=== PATIENT | female | born 1950 | race Caucasian/White ===

== ENCOUNTER → 2017-01-23 | Outpatient (CLI) | payer OTHER ==
[~2017-01-23] MED LIST: PRLSR20 PO
[2017-01-23 14:44] LABS: BASO % 0.7 %; BASO ABS # 0.06 K/uL (0-0.2); COMPLETE YES; HEMATOCRIT 41.6 % (37-47); IG% 0.2 %; LYMPH % 26.7 %; LYMPH ABS # 2.27 K/uL (1.2-3.4); MEAN CORPUSCULAR HEMOGLOBIN 31.5 pg (25-34); MEAN CORPUSCULAR HGB CONC 33.2 g/dl (32-36); MEAN PLATELET VOLUME 9.9 fL (7.4-10.4); MONO % 7.6 %; NEUT % 62.8 %; PLATELET COUNT 339 K/uL (130-400); RED BLOOD COUNT 4.38 M/uL (4.2-5.4)
[2017-01-23 15:04] LABS: ALT/SGPT 34 U/L (12-78); BLOOD UREA NITROGEN 16 mg/dl (7-18); BUN/CREATININE RATIO 17.6 (10-20); CALCIUM 9.2 mg/dl (8.5-10.1); CARBON DIOXIDE 31 mmol/L (21-32); CHLORIDE 106 mmol/L (98-107); CREATININE 0.91 mg/dl (0.60-1.20); GLUCOSE 93 mg/dl (70-99); SODIUM 141 mmol/L (136-145)
[2017-01-23 15:07] LABS: ALB/GLOB RATIO 1.1 (0.9-2); ALKALINE PHOSPHATASE 75 U/L (45-117); AST/SGOT 17 U/L (15-37); CHOLESTEROL 200 mg/dl (0-200); CHOLESTEROL/HDL RATIO 2.9; HDL CHOLESTEROL 70 mg/dl; LDL CHOLESTEROL CALCULATED 113 mg/dl; TRIGLYCERIDES 83 mg/dl (0-150); VERY LOW DENSITY LIPOPROT CALC 17 mg/dl
== END | disposition home or self-care (01) ==
LOC: C.LABBC 12:15
PROVIDERS: ATTEND Family Medicine
DX: K21.9 Gastro-esophageal reflux disease without esophagitis (principal); E55.9 Vitamin D deficiency, unspecified; E78.5 Hyperlipidemia, unspecified; Z13.0 Encounter for screening for diseases of the blood and blood-forming organs and certain disorders involving the immune mechanism

== ENCOUNTER → 2017-03-04 | Outpatient (CLI) | payer OTHER ==
[2017-03-04 16:58] LABS: BASO % 0.6 %; BASO ABS # 0.05 K/uL (0-0.2); COMPLETE YES; EOS % 1.8 %; HEMATOCRIT 42.7 % (37-47); IG% 0.2 %; LYMPH % 30.5 %; LYMPH ABS # 2.65 K/uL (1.2-3.4); MEAN CELL VOLUME 93.4 fL (80-100); MEAN CORPUSCULAR HEMOGLOBIN 31.7 pg (25-34); MEAN PLATELET VOLUME 10.4 fL (7.4-10.4); MONO % 6.7 %; NEUT % 60.2 %; PLATELET COUNT 314 K/uL (130-400); RED BLOOD COUNT 4.57 M/uL (4.2-5.4); WHITE BLOOD COUNT 8.68 K/uL (4.8-10.8)
[2017-03-04 17:06] LABS: ALT/SGPT 33 U/L (12-78); AST/SGOT 17 U/L (15-37); BLOOD UREA NITROGEN 16 mg/dl (7-18); BUN/CREATININE RATIO 15.5 (10-20); CALCIUM 9.6 mg/dl (8.5-10.1); CARBON DIOXIDE 29 mmol/L (21-32); CHLORIDE 102 mmol/L (98-107); GLUCOSE 87 mg/dl (70-99); POTASSIUM 4.2 mmol/L (3.5-5.1); SODIUM 140 mmol/L (136-145)
[2017-03-04 17:17] LABS: ALB/GLOB RATIO 1.2 (0.9-2); ALKALINE PHOSPHATASE 73 U/L (45-117); THYROID STIMULATING HORMONE 0.475 uIu/ml (0.300-4.500)
[2017-03-04 18:32] LABS: LYME DISEASE AB IGM NEG (NEG)
[2017-03-04 18:35] LABS: LYME DISEASE AB IGG NEG (NEG)
== END | disposition home or self-care (01) ==
LOC: C.LABBC 15:02
PROVIDERS: ATTEND Physician Assistant
DX: R53.83 Other fatigue (principal)

== ENCOUNTER 2017-03-15 11:47 | Emergency (ER) | payer OTHER ==
[~2017-03-15] VITALS: Ht 157.5 cm; Wt 81.8 kg
[2017-03-15 11:51] VITALS: TEMP 36.8; Ht 157.5 cm; Wt 81.8 kg
[2017-03-15 12:40] LABS: BASO % 0.4 %; BASO ABS # 0.03 K/uL (0-0.2); COMPLETE YES; EOS % 1.4 %; HEMATOCRIT 42.4 % (37-47); IG% 0.3 %; LYMPH % 25.5 %; LYMPH ABS # 1.85 K/uL (1.2-3.4); MEAN CELL VOLUME 94.2 fL (80-100); MEAN CORPUSCULAR HEMOGLOBIN 31.6 pg (25-34); MEAN CORPUSCULAR HGB CONC 33.5 g/dl (32-36); MEAN PLATELET VOLUME 10.2 fL (7.4-10.4); MONO % 8.8 %; NEUT % 63.6 %; PLATELET COUNT 276 K/uL (130-400); WHITE BLOOD COUNT 7.26 K/uL (4.8-10.8)
[2017-03-15 12:56] LABS: CALCIUM 8.9 mg/dl (8.5-10.1); CREATININE 0.9 mg/dl (0.60-1.20); POTASSIUM 4.1 mmol/L (3.5-5.1)
--- NOTE | 2017-03-15 13:02 | DIAGNOSTIC IMAGING REPORT ---
CHEST 2 VIEWS ROUTINE CLINICAL HISTORY: fatigue LEG WEAKNESS COMPARISON STUDY: No previous studies for comparison. FINDINGS: The cardiac and mediastinal contours are normal. There is no evidence of focal pulmonary consolidation. There is no evidence of failure. No pleural effusions are visualized.[ Slightly prominent basilar markings are likely atelectatic IMPRESSION: No active disease in the chest. Electronically signed by: John Schultz M.D. 03/15/2017 1:01 PM Dictated Date/Time: 03/15/2017 1:00 PM
--- NOTE | 2017-03-15 13:12 | EMERGENCY ROOM VISIT NOTE ---
ED Visit Note First contact with patient: 11:58 I have seen and examined this patient with Kait Miranda and generally agree with the treatment plan as discussed. Current/Historical Medications Scheduled Omeprazole (Prilosec), 20 MG PO BID Allergies Coded Allergies: Adhesives (Verified Allergy, Unknown, SKIN IRRITATION, 03/15/17) Penicillins (Verified Allergy, Unknown, 03/15/17) Sulfa Drugs (Verified Allergy, Unknown, 03/15/17) Lavender Oil (Verified Adverse Reaction, Unknown, GI SYMPTOMS, 03/15/17) Vital Signs Date Time Temp Pulse Resp B/P (MAP) Pulse Ox O2 Delivery O2 Flow Rate FiO2 03/15/17 11:51 36.8 88 18 136/71 96 Room Air Laboratory Results 03/15/17 12:27 Red Blood Count 4.50, Mean Corpuscular Volume 94.2, Mean Corpuscular Hemoglobin 31.6, Mean Corpuscular Hemoglobin Concent 33.5, Mean Platelet Volume 10.2, Neutrophils (%) (Auto) 63.6, Lymphocytes (%) (Auto) 25.5, Monocytes (%) (Auto) 8.8, Eosinophils (%) (Auto) 1.4, Basophils (%) (Auto) 0.4, Neutrophils # (Auto) 4.62, Lymphocytes # (Auto) 1.85, Monocytes # (Auto) 0.64, Eosinophils # (Auto) 0.10, Basophils # (Auto) 0.03 03/15/17 12:27 Test 03/15/17 12:25 03/15/17 12:27 Influenza Type A Antigen Neg for Influ A (NEG) Influenza Type B Antigen Neg for Influ B (NEG) White Blood Count 7.26 K/uL (4.8-10.8) Red Blood Count 4.50 M/uL (4.2-5.4) Hemoglobin 14.2 g/dL (12.0-16.0) Hematocrit 42.4 % (37-47) Mean Corpuscular Volume 94.2 fL (80-100) Mean Corpuscular Hemoglobin 31.6 pg (25-34) Mean Corpuscular Hemoglobin Concent 33.5 g/dl (32-36) Platelet Count 276 K/uL (130-400) Mean Platelet Volume 10.2 fL (7.4-10.4) Neutrophils (%) (Auto) 63.6 % Lymphocytes (%) (Auto) 25.5 % Monocytes (%) (Auto) 8.8 % Eosinophils (%) (Auto) 1.4 % Basophils (%) (Auto) 0.4 % Neutrophils # (Auto) 4.62 K/uL (1.4-6.5) Lymphocytes # (Auto) 1.85 K/uL (1.2-3.4) Monocytes # (Auto) 0.64 K/uL (0.11-0.59) Eosinophils # (Auto) 0.10 K/uL (0-0.5) Basophils # (Auto) 0.03 K/uL (0-0.2) RDW Standard Deviation 46.0 fL (36.4-46.3) RDW Coefficient of Variation 13.4 % (11.5-14.5) Immature Granulocyte % (Auto) 0.3 % Immature Granulocyte # (Auto) 0.02 K/uL (0.00-0.02) Anion Gap 9.0 mmol/L (3-11) Est Creatinine Clear Calc Drug Dose 61.8 ml/min Estimated GFR () 77.8 Estimated GFR (Non- 67.1 BUN/Creatinine Ratio 11.0 (10-20) Calcium Level 8.9 mg/dl (8.5-10.1) Total Bilirubin 0.4 mg/dl (0.2-1) Direct Bilirubin 0.1 mg/dl (0-0.2) Aspartate Amino Transf (AST/SGOT) 17 U/L (15-37) Alanine Aminotransferase (ALT/SGPT) 28 U/L (12-78) Alkaline Phosphatase 60 U/L (45-117) Total Protein 7.4 gm/dl (6.4-8.2) Albumin 4.0 gm/dl (3.4-5.0) Lipase 124 U/L (73-393) Departure Information Referrals Mohan Bingham D.O.Int.Med. (PCP) Patient Instructions My [facility]
--- NOTE | 2017-03-15 13:26 | EMERGENCY ROOM VISIT NOTE ---
History First contact with patient: 11:58 Chief Complaint: ILLNESS Stated Complaint: WEAKNESS IN LEGS, FATIGUE, PRESSURE IN HEAD History of Present Illness The patient is a 66 year old female who presents to the Emergency Room with multiple complaints. The patient states that her symptoms have been going on for 2 weeks. She states that she has had increased fatigue for the entire 2 weeks. She also has had intermittent tingling in her legs and leg weakness. She had one episode yesterday of right shoulder and neck pain but that has resolved. The patient also admits to watery eyes and runny nose. She has not been taking any [id number]-atl-[id number] allergy medicine. She's also had some pressure in her head. She was seen by her family physician for the same symptoms on March 04. She had CBC and complete metabolic profile TSH d-dimer and Lyme titer which were all negative. Do not show any evidence of anemia or hypothyroidism. The patient states that she read an article that you could have a negative Lyme titer and still have Lyme's disease. The patient states that her family physician told her to come to the ER if she was not getting any better. She states this morning she just felt very very tired. She states that her family doctor has been out of town the last week and a half. Review of Systems 10 system review was performed and was negative unless stated otherwise history of present illness. Past Medical/Surgical History Tonsillectomy, C. difficile, Zenker's diverticulum Social History Smoking Status: Never Smoker Smokeless Tobacco Use: No Alcohol Use: none Drug Use: none Housing Status: lives alone Occupation Status: retired Current/Historical Medications Scheduled Omeprazole (Prilosec), 20 MG PO BID Allergies Coded Allergies: Adhesives (Verified Allergy, Unknown, SKIN IRRITATION, 03/15/17) Penicillins (Verified Allergy, Unknown, 03/15/17) Sulfa Drugs (Verified Allergy, Unknown, 03/15/17) Lavender Oil (Verified Adverse Reaction, Unknown, GI SYMPTOMS, 03/15/17) Physical Exam Vital Signs Date Time Temp Pulse Resp B/P (MAP) Pulse Ox O2 Delivery O2 Flow Rate FiO2 03/15/17 11:51 36.8 88 18 136/71 96 Room Air Physical Exam PHYSICAL EXAM: Vital Signs were reviewed: Reviewed Nurse's notes and agree. Oxygen saturation is 96 % on room air which is normal . GENERAL: 66-year-old female appears in no acute distress. MENTAL STATUS: Alert, oriented, coherent. EARS: Canals with cerumen unable to visualize TMs.. NOSE: Turbinates appear pale and boggy bilaterally.. PHARYNX: No erythema, no edema noted. No exudate noted. Airway is adequate. NECK: Supple, non-tender. No lymphadenopathy noted. Thyroid without enlargement or nodularity. LUNGS: Clear to auscultation without wheezes rales or rhonchi. CARDIAC: Regular rate and rhythm without murmur. SKIN: No rashes noted. LUMBAR SPINE: No gross bony deformity noted. Nontender to palpation throughout. Full range of motion without pain. Patient is able to heel and toe walk without difficulty. I lateral patellar and Achilles reflexes are 2+. BILATERAL LOWER EXTREMITY: No erythema or edema noted. Calves nontender to palpation. Medical Decision & Procedures ER Provider Diagnostic Interpretation: CHEST 2 VIEWS ROUTINE CLINICAL HISTORY: fatigue LEG WEAKNESS COMPARISON STUDY: No previous studies for comparison. FINDINGS: The cardiac and mediastinal contours are normal. There is no evidence of focal pulmonary consolidation. There is no evidence of failure. No pleural effusions are visualized.[ Slightly prominent basilar markings are likely atelectatic IMPRESSION: No active disease in the chest. Electronically signed by: John Schultz M.D. 03/15/2017 1:01 PM Laboratory Results 03/15/17 12:27 Red Blood Count 4.50, Mean Corpuscular Volume 94.2, Mean Corpuscular Hemoglobin 31.6, Mean Corpuscular Hemoglobin Concent 33.5, Mean Platelet Volume 10.2, Neutrophils (%) (Auto) 63.6, Lymphocytes (%) (Auto) 25.5, Monocytes (%) (Auto) 8.8, Eosinophils (%) (Auto) 1.4, Basophils (%) (Auto) 0.4, Neutrophils # (Auto) 4.62, Lymphocytes # (Auto) 1.85, Monocytes # (Auto) 0.64, Eosinophils # (Auto) 0.10, Basophils # (Auto) 0.03 03/15/17 12:27 Test 03/15/17 12:25 03/15/17 12:27 Influenza Type A Antigen Neg for Influ A (NEG) Influenza Type B Antigen Neg for Influ B (NEG) White Blood Count 7.26 K/uL (4.8-10.8) Red Blood Count 4.50 M/uL (4.2-5.4) Hemoglobin 14.2 g/dL (12.0-16.0) Hematocrit 42.4 % (37-47) Mean Corpuscular Volume 94.2 fL (80-100) Mean Corpuscular Hemoglobin 31.6 pg (25-34) Mean Corpuscular Hemoglobin Concent 33.5 g/dl (32-36) Platelet Count 276 K/uL (130-400) Mean Platelet Volume 10.2 fL (7.4-10.4) Neutrophils (%) (Auto) 63.6 % Lymphocytes (%) (Auto) 25.5 % Monocytes (%) (Auto) 8.8 % Eosinophils (%) (Auto) 1.4 % Basophils (%) (Auto) 0.4 % Neutrophils # (Auto) 4.62 K/uL (1.4-6.5) Lymphocytes # (Auto) 1.85 K/uL (1.2-3.4) Monocytes # (Auto) 0.64 K/uL (0.11-0.59) Eosinophils # (Auto) 0.10 K/uL (0-0.5) Basophils # (Auto) 0.03 K/uL (0-0.2) RDW Standard Deviation 46.0 fL (36.4-46.3) RDW Coefficient of Variation 13.4 % (11.5-14.5) Immature Granulocyte % (Auto) 0.3 % Immature Granulocyte # (Auto) 0.02 K/uL (0.00-0.02) Anion Gap 9.0 mmol/L (3-11) Est Creatinine Clear Calc Drug Dose 61.8 ml/min Estimated GFR () 77.8 Estimated GFR (Non- 67.1 BUN/Creatinine Ratio 11.0 (10-20) Calcium Level 8.9 mg/dl (8.5-10.1) Total Bilirubin 0.4 mg/dl (0.2-1) Direct Bilirubin 0.1 mg/dl (0-0.2) Aspartate Amino Transf (AST/SGOT) 17 U/L (15-37) Alanine Aminotransferase (ALT/SGPT) 28 U/L (12-78) Alkaline Phosphatase 60 U/L (45-117) Total Protein 7.4 gm/dl (6.4-8.2) Albumin 4.0 gm/dl (3.4-5.0) Lipase 124 U/L (73-393) ED Course The patient was evaluated. I. Reviewed the patient's office visit from March 04. The patient had complained of the same symptoms she is complaining of today. All her labs are reviewed as stated in history of present illness and were unremarkable. Lyme titer was negative. EKG was also unremarkable. A chest x-ray was ordered since this was not previously performed. Rapid influenza was also performed. Influenza was negative for influenza A and influenza B. Chest x-ray revealed no acute process by radiologist and my review. IV access was obtained. I did a repeat CBC and differential and renal profile just make sure there was not a GI bleed and starting of anemia. Also wanted checked white count to make sure she did not have some type of infection. Labs are all reviewed and were unremarkable. The patient's case was discussed with Dr. Almonte who independently evaluated the patient agree with treatment plan. The patient was informed of all findings. The patient was discharged home in stable condition. Medical Decision Differential diagnosis include Lyme's disease, anemia, hypothyroidism, influenza , uncontrolled allergic rhinitis Impression Primary Impression: Allergic rhinitis Additional Impressions: Fatigue Leg weakness, bilateral Departure Information Dispostion Home / Self-Care Condition GOOD Referrals Mohan Bingham, D.O.Int.Med. (PCP) Forms HOME CARE DOCUMENTATION FORM, IMPORTANT VISIT INFORMATION, WORK / SCHOOL INSTRUCTIONS Patient Instructions ED Rhinitis Allergic Ch, Fatigue Manage, My [facility] [place] Additional Instructions Avoid extended outdoor exposures. Sleep with your windows closed if possible. Take fgws-[id number] Zyrtec daily as directed. Also recommend over-the- counter steroid nasal spray such as Flonase or Nasacort AQ daily. May also try multivitamin for energy. Follow-up with your family physician in one week for reevaluation or earlier if symptoms worsen. Problem Qualifiers Primary Impression: Allergic rhinitis Chronicity: acute Allergic rhinitis trigger: pollen Allergic rhinitis seasonality: seasonal Qualified Codes: J30.1 - Allergic rhinitis due to pollen Additional Impressions: Fatigue Fatigue type: unspecified Qualified Codes: R53.83 - Other fatigue
[2017-03-15 13:28] VITALS: BP 147/79; PULSE 79; O2SAT 99
[2017-03-15 13:38] LABS: URINE APPEARANCE CLEAR (CLEAR); URINE BILIRUBIN NEG (NEG); URINE COLOR YELLOW; URINE NITRITE NEG (NEG); URINE PH 6.5 (4.5-7.5); URINE SPECIFIC GRAVITY 1.005 (1.000-1.030); UROBILINOGEN NEG (NEG); ZZUR CULT IF INDIC CLEAN CATCH NO
[2017-03-15 13:42] LABS: MANUAL MICROSCOPIC REQUIRED? NO; REVIEW REQ? NO
== END 2017-03-15 13:45 | disposition home or self-care (01) ==
LOC: C.EDB 11:48 → C.EDA 13:45
DX: J30.1 Allergic rhinitis due to pollen (principal); R53.83 Other fatigue; M62.81 Muscle weakness (generalized); A04.7 Enterocolitis due to Clostridium difficile; K22.5 Diverticulum of esophagus, acquired

== ENCOUNTER → 2017-08-17 | Outpatient (CLI) | payer OTHER ==
--- NOTE | 2017-08-17 15:01 | MAMMOGRAPHY REPORT ---
ULTRASOUND OF BOTH BREASTS: 08/17/2017 CLINICAL HISTORY: 67-year-old woman presents for screening. She refuses mammography but is willing t o undergo whole breast screening ultrasound. We discussed at length the limitations of ultrasound in that it is best using conjunction with mammography. Certain findings such as architectural distorti on and microcalcification may not be visualized with ultrasound but would be clearly identified mammo graphically. Therefore, only screening with ultrasound could delay diagnosis of breast cancer. COMPARISON: Comparison is made to exam dated: 08/02/2015 ultrasound - [facility]. FINDINGS: Real-time high-resolution sonographic evaluation was performed throughout each breast inclu ding the retroareolar aspect of the breasts and both axillae. Within both axilla, sonographically no rmal lymph nodes within cortices are identified. No suspicious lymphadenopathy is currently seen. S low blood flow is noted within a left axillary vein. The breast parenchymal echotexture is homogeneousfatty. No discrete solid or cystic mass is seen in the breasts. There is no sonographic evidence of malignancy. IMPRESSION: ACR BI-RADS CATEGORY 0: INCOMPLETE EVALUATION: NEED ADDITIONAL IMAGING EVALUATION 1. There is no sonographic evidence of malignancy in the breasts. No discrete abnormality is seen t hroughout the right or left breast on breast screening ultrasound. 2. No suspicious axillary lymphadenopathy bilaterally. 3. We discussed the limitations of performing only whole breast ultrasound for breast screening; it is most useful when used in conjunction with mammography. Although the patient is concerned about ra diation risks from mammography, we discussed the benefits of possibly finding early breast cancer whi ch may present as macrocalcifications or architectural distortion. The patient will consider mammogr aphy and possibly return to our department for bilateral screening mammography. These results and recommendations were discussed with the patient at the time of the exam. Jerica Romano M.D. ay/:08/17/2017 08:32:08 Attending Technologist: Rashid PRYOR(R)(M), [facility] Unit Coordinator: Dr. Jerica Romano, [facility] letter sent: Addl Imaging 0 BI-RADS Code: ACR BI-RADS Category 0: Incomplete Evaluation: Need Additional Imaging Evaluation
== END | disposition home or self-care (01) ==
LOC: C.MAMM 07:40
PROVIDERS: ATTEND Physician Assistant Medical
DX: Z12.31 Encounter for screening mammogram for malignant neoplasm of breast (principal)

== ENCOUNTER → 2018-01-04 | Outpatient (CLI) | payer OTHER ==
--- NOTE | 2018-01-04 12:41 | DIAGNOSTIC IMAGING REPORT ---
CHEST 2 VIEWS ROUTINE HISTORY: ACUTE BRONCHITIS COMPARISON: Chest 03/15/2017. FINDINGS: Linear density within the right middle lobe favors subsegmental atelectasis. The lungs are otherwise clear. The heart is normal in size. No pleural effusions. No pneumothorax. IMPRESSION: No acute process. Electronically signed by: Ankur Frost M.D. 01/04/2018 12:40 PM Dictated Date/Time: 01/04/2018 12:37 PM
== END | disposition home or self-care (01) ==
LOC: C.RADBC 12:23
PROVIDERS: ATTEND Physician Assistant Medical
DX: J20.9 Acute bronchitis, unspecified (principal)